=== PATIENT | male | born 1990 | race Caucasian/White ===

== ENCOUNTER 2017-04-01 11:01 | Emergency (ER) | payer OTHER ==
[2017-04-01 11:10] VITALS: RESP 16
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
[2017-04-01 12:31] VITALS: BP 129/79; PULSE 70; TEMP 98.2; O2SAT 95
== END 2017-04-01 12:31 | disposition home or self-care (01) ==
PROC: 0CQ0XZZ Repair Upper Lip, External Approach (ICD-10-PCS; principal; 2017-04-01)
DX: S01.511A Laceration without foreign body of lip, initial encounter (principal); Y04.0XXA Assault by unarmed brawl or fight, initial encounter; Y92.149 Unspecified place in prison as the place of occurrence of the external cause